=== PATIENT | male | born 1980 | race Hispanic/Latino ===

== ENCOUNTER 2016-08-12 14:13 | Emergency (ER) | payer OTHER ==
[2016-08-12 14:19] VITALS: BMI 24.1
[2016-08-12 14:22] VITALS: RESP 18
[2016-08-12] MEDS ORDERED: Aspirin 325 mg EC Tablets PO STA (14:44)
[2016-08-12] MEDS ORDERED: Sodium Chloride 0.9% 1,000 ML IV ONE (14:44)
--- NOTE | 2016-08-12 14:49 | C.PDOC ---
History Of Present Illness 35 y/o male presents to the ED with complains of pain for 4 days, midsternal to left side chest, sharp and intermittent. Denies fever, cough, SOB, back pain, numbness, weakness. Time Seen by Provider: 08/12/16 14:44 Chief Complaint (Nursing): Chest Pain History Per: Patient History/Exam Limitations: no limitations Onset/Duration Of Symptoms: Days, Intermittent Episodes Current Symptoms Are (Timing): Still Present Severity: Moderate Quality: Sharp Modifying Factors: None Alleviating Factors: None Recent travel outside of the [place]: No Past Medical History Reviewed: Historical Data, Nursing Documentation, Vital Signs Vital Signs: Last Vital Signs Temp 98.6 F 08/12/16 16:05 Pulse 68 08/12/16 16:05 Resp 18 08/12/16 16:05 BP 118/68 08/12/16 16:05 Pulse Ox 100 08/12/16 16:05 - Medical History PMH: GERD Surgical History: Appendectomy Family History: States: Unknown Family Hx - Social History Hx Alcohol Use: No Hx Substance Use: No - Immunization History Hx Tetanus Toxoid Vaccination: No Hx Influenza Vaccination: No Hx Pneumococcal Vaccination: No Review Of Systems Except As Marked, All Systems Reviewed And Found Negative. Constitutional: Negative for: Fever Cardiovascular: Positive for: Chest Pain Respiratory: Negative for: Cough, Shortness of Breath Musculoskeletal: Negative for: Back Pain Neurological: Negative for: Weakness, Numbness Physical Exam - Physical Exam Appears: Non-toxic, No Acute Distress Skin: Warm, Dry, No Rash Head: Atraumatic, Normacephalic Eye(s): bilateral: Normal Inspection, EOMI Nose: Normal Oral Mucosa: Moist Neck: Normal, Normal ROM, Supple Chest: Symmetrical, Tenderness (anterior chest wall) Cardiovascular: Rhythm Regular, No Murmur Respiratory: Normal Breath Sounds, No Rales, No Rhonchi, No Wheezing Gastrointestinal/Abdominal: Normal Exam, Soft, No Tenderness Extremity: Bilateral: Atraumatic, No Pedal Edema, Normal Color And Temperature, Normal ROM Neurological/Psych: Oriented x3, Normal Speech Gait: Steady ED Course And Treatment - Laboratory Results Result Diagrams: 08/12/16 15:10 08/12/16 15:10 Lab Interpretation: No Acute Changes ECG: Interpreted By Me, Viewed By Me ECG Rhythm: R BBB (incomplete) ECG Interpretation: No Acute Changes Interpretation Of ECG: No ischemic changes. No prior available for comparison Rate From EC (BPM) O2 Sat by Pulse Oximetry: 99 (room air) Pulse Ox Interpretation: Normal - Radiology CXR: Interpreted by Me, Viewed By Me CXR Interpretation: Yes: No Acute Disease Medical Decision Making Medical Decision Makin y.o male with 4 day history of left sided chest pain, reproducible tenderness on exam. EKG shows incomplete RBBB, no priors available for comparison. CXR was unremarkable. All labs reviewed and unremarkable, negative troponin, no electrolyte abnormality. Given negative findings on cardiac monitoring and neg trop after 4 days, unlikely ACS. Chest pain likely musculoskeletal vs anxiety vs GERD. Patient remained well and in no acute distress. Vital signs stable. Patient is stable for discharge. I discussed and explained results. Recommend follow up with cardiology outpatient and with PCP or clinic. Disposition Counseled Patient/Family Regarding: Need For Followup, Rx Given - Disposition Referrals: [facility] [Outside] [facility] [Outside] Disposition: HOME/ ROUTINE Disposition Time: 15:50 Condition: STABLE Additional Instructions: Your labs and chest xray were normal EKG shows incomplete right bundle branch block You should follow up with primary physician and taker off braker machine for further evaluation Instructions: Heart Block (ED), Noncardiac Chest Pain (ED) - POA Present On Arrival: None - Clinical Impression Clinical Impression: Chest pain, Incomplete RBBB - PA / [employer] / Resident Statement MD/DO has reviewed & agrees with the documentation as recorded. - Scribe Statement The provider has reviewed the documentation as recorded by the Jamila Mcadams All medical record entries made by the [employer] were at my direction and personally dictated by me. I have reviewed the chart and agree that the record accurately reflects my personal performance of the history, physical exam, medical decision making, and the department course for this patient. I have also personally directed, reviewed, and agree with the discharge instructions and disposition.
[2016-08-12] MEDS ORDERED: Sodium Chloride 0.9% 1,000 ML ONE (14:55)
[2016-08-12 15:14] LABS: BASO % 0.5 % (0.0-2.0); EOS # 0.3 K/uL (0.0-0.7); HEMATOCRIT 46.7 % (35.0-51.0); LYMPH # 3.2 K/uL (1.0-4.3); LYMPH % 35.3 % (20.0-40.0); MEAN CORPUSCULAR HEMOGLOBIN 29.6 pg (27.0-31.0); MEAN CORPUSCULAR HGB CONC 34.1 g/dL (33.0-37.0); MEAN PLATELET VOLUME 7.5 fL (7.2-11.7); MONO # 0.7 K/uL (0.0-0.8); MONO % 8.1 % (0.0-10.0); RED CELL DISTRIBUTION WIDTH 13.3 % (11.5-14.5)
[2016-08-12 15:20] LABS: URINE BILIRUBIN NEGATIVE (NEGATIVE); URINE BLOOD NEGATIVE (NEGATIVE); URINE COLOR Yellow (YELLOW); URINE GLUCOSE (UA) 1+ mg/dL (Normal); URINE KETONE NEGATIVE (NEGATIVE); URINE LEUKOCYTE ESTERASE NEG Leu/uL (Negative); URINE PROTEIN NEGATIVE (NEGATIVE); URINE UROBILINOGEN NORMAL mg/dL (0.2-1.0); WBC URINE < 1 /hpf (0-5)
[2016-08-12 15:28] LABS: CHLORIDE 99 mmol/L (98-107); SODIUM 138 mmol/L (132-148)
[2016-08-12 15:29] LABS: POTASSIUM 4.2 mmol/L (3.6-5.2)
[2016-08-12 15:31] LABS: ALB/GLOB RATIO 1.4 (1.0-2.1); ALKALINE PHOSPHATASE 54 U/L (38-126); ALT/SGPT 18 U/L (21-72); AST/SGOT 24 U/L (17-59); BILIRUBIN,TOTAL 1.2 mg/dL (0.2-1.3); BLOOD UREA NITROGEN 17 mg/dL (9-20); CARBON DIOXIDE 29 mmol/L (22-30); GFR AFRICAN-AMERICAN > 60; GLUCOSE,RANDOM 82 mg/dL (75-110); TOTAL PROTEIN 7.8 g/dL (6.3-8.3)
[2016-08-12 15:32] LABS: CALCIUM 8.9 mg/dl (8.6-10.4)
--- NOTE | 2016-08-12 15:47 | RAD ---
HISTORY: chest pain COMPARISON: March 25, 2012. TECHNIQUE: Chest PA and lateral FINDINGS: LUNGS: No active pulmonary disease. PLEURA: No significant pleural effusion identified. No pneumothorax apparent. CARDIOVASCULAR: Normal. OSSEOUS STRUCTURES: No significant abnormalities. VISUALIZED UPPER ABDOMEN: Normal. OTHER FINDINGS: Azygos fissure, benign finding. IMPRESSION: No active disease. No significant interval change compared to the prior examination(s).
[2016-08-12 16:05] VITALS: BP 118/68; PULSE 68; TEMP 98.6
[2016-08-13 07:22] VITALS: O2SAT 99
--- NOTE | 2016-08-18 20:49 | CARD ---
APPROVED REPORT EKG Measurement Heart [id number] <Conclusion> Normal sinus rhythm Incomplete right bundle branch block Borderline ECG
== END 2016-08-12 16:06 | disposition home or self-care (01) ==
LOC: C.ER 14:13
DX: I45.10 Unspecified right bundle-branch block (principal); R07.9 Chest pain, unspecified
CPT/HCPCS: 71020; 80053; 81001; 83880; 84484; 85025; 93005; 96360; 99284; J7040